=== PATIENT | female | born 1985 | race Caucasian/White ===

== ENCOUNTER 2020-08-30 11:05 | Emergency (ER) | payer OTHER ==
[2020-08-30] MEDS ORDERED: HYDROcod/ACET 5/325 Prepack 4 PO STA (11:20)
[2020-08-30] MEDS ORDERED: HYDROcod/ACETAM 5/325 MG TABLET PO STA (11:20)
[2020-08-30] MEDS ORDERED: predniSONE 20 MG TABLET PO STA (11:20)
--- NOTE | 2020-08-30 11:21 | ED Physician Documentation ---
PD HPI BACK PAIN - Stated complaint Stated Complaint: BACK PX - Chief complaint Chief Complaint: Back Pain - History obtained from History obtained from: Patient - Additional information Additional information: Starting that 2 weeks ago she had right-sided low back pain which has been progressive and now radiates into the hip with tingling in the toes on the right. She denies saddle anesthesia, incontinence, or fevers. She has had a similar episode on the left side in the past which was milder. There was no injury. No possibility of . No urinary complaints. Review of Systems Ten Systems: 10 systems reviewed and negative Constitutional: denies: Fever, Chills Eyes: denies: Loss of vision, Decreased vision Ears: denies: Loss of hearing, Ear pain Nose: reports: Reviewed and negative Throat: reports: Reviewed and negative Cardiac: reports: Reviewed and negative Respiratory: reports: Reviewed and negative PD PAST MEDICAL HISTORY - Present Medications Home Medications: Ambulatory Orders Medication Instructions Recorded Confirmed HYDROcod/ACETAM 5/325 [[place] 5/325] 1 - 2 tab PO Q6H PRN #15 tablet 08/30/20 predniSONE [Deltasone] 20 mg PO [id number] #21 tab 08/30/20 - Allergies Allergies/Adverse Reactions: Allergies Allergy/AdvReac Type Severity Reaction Status Date / Time Sulfa (Sulfonamide Allergy Hives Verified 08/30/20 11:11 Antibiotics) PD ED PE NORMAL - Vitals Vital signs reviewed: Yes - General General: Alert and oriented X 3 - Abdomen Abdomen: Normal bowel sounds, Soft, Non tender - Back Back: Other (She has muscular tenderness of the low right low back just above the pelvic brim posteriorly without midline or flank tenderness.) - Extremities Extremities: Other (The patient has equal and normal Achilles and patellar reflexes bilaterally. Normal sensation in all areas of the legs. Patient denies saddle anesthesia. Normal strength in flexion-extension at the ankles, knees, and flexion of the hips.) - Neuro Neuro: Alert and oriented X 3, Normal speech Results - Vitals Vitals: Vital Signs - 24 hr 08/30/20 08/30/20 11:06 12:40 Temperature 36.5 C 36.9 C Heart Rate 130 H 94 Respiratory 20 12 Rate Blood Pressure 127/69 109/77 O2 Saturation 100 100 Oxygen O2 Source Room air - Labs Labs: Laboratory Tests 08/30/20 11:30 Urine Color YELLOW Urine Clarity CLEAR Urine pH 6.5 Ur Specific [place] 1.015 Urine Protein NEGATIVE Urine Glucose (UA) NEGATIVE Urine Ketones NEGATIVE Urine Occult Blood TRACE-LYSE Urine Nitrite NEGATIVE Urine Bilirubin NEGATIVE Urine Urobilinogen 0.2 (NORMAL) Ur Leukocyte Esterase NEGATIVE Ur Microscopic Review NOT INDICATED Urine Culture Comments NOT INDICATED Urine HCG, Qual NEGATIVE - Rads (name of study) L spine XR Radiology: EMP read contemporaneously (Bronson owen, DMITRI) PD MEDICAL DECISION MAKING - ED course ED course: This patient has seemingly uncomplicated musculoskeletal back pain. The patient has no "red flags." Specifically denies IV drug use, fevers, incontinence, saddle anesthesia. Spinal epidural abscess was considered, given that the patient has no fever, is not diabetic, has no spinal tenderness, does not use IV drugs, and has no bilateral neurologic symptoms, the diagnosis of spinal epidural abscess is considered exceedingly unlikely. Departure - Departure Disposition: Home, Self Care Clinical Impression: Sciatica Qualifiers: Laterality: right Qualified Code(s): M54.31 - Sciatica, right side Condition: Good Record reviewed to determine appropriate education?: Yes Instructions: ED Sciatica Prescriptions: predniSONE [Deltasone] 20 mg PO [id number] #21 tab HYDROcod/ACETAM 5/325 [[place] 5/325] 1 - 2 tab PO Q6H PRN #15 tablet PRN Reason: Pain Comments: Return if worsening or if new symptoms develop. Follow-up your primary care physician, next available appointment, call Wednesday for that. Do not drink or drive while taking prescription pain medication. Discharge Date/Time: 08/30/20 12:44
[2020-08-30 11:42] LABS: BILIRUBIN,URINE NEGATIVE (NEGATIVE); GLUCOSE, URINE (UA) NEGATIVE (NEGATIVE); KETONES,URINE (UA) NEGATIVE (NEGATIVE); LEUKOCYTE ESTERASE, URINE NEGATIVE (NEGATIVE); NITRITE,URINE NEGATIVE (NEGATIVE); OCCULT BLOOD,URINE TRACE-LYSE (NEGATIVE); PH,URINE 6.5 PH (5.0-7.5); PROTEIN,URINE NEGATIVE (NEGATIVE); UROBILINOGEN,URINE 0.2 (NORMAL) E.U./dL (NORMAL)
[2020-08-30 11:44] LABS: CLARITY,URINE CLEAR (CLEAR); HCG UR QUAL NEGATIVE
--- NOTE | 2020-08-30 12:36 | XRAY Report ---
PROCEDURE: Lumbar Spine 2 View INDICATIONS: back pain TECHNIQUE: 2 views of the lumbar spine were acquired. COMPARISON: None. FINDINGS: Bones: 5 ecc-aht-dizpdig vertebrae are present. There is minimal to mild levoconvex thoracolumbar s clerotic curvature. Minimal retrolisthesis is seen at the L2-L3, L4-L5, and L5-S1 levels. No vertebra l body compression fractures. No suspicious bony lesions. Mild disc space narrowing is seen at the L5-S1 level. The spinal alignment and spinal curvature are otherwise within normal limits. Mild lower lumbar spine facet arthropathy is seen. Soft tissues: Overlying bowel gas pattern is normal. No suspicious soft tissue calcifications. IMPRESSION: Lower lumbar spine degenerative changes are seen, which are worst at the L5-S1 level. Reviewed by: Kedar Courtney MD on 08/30/2020 11:35 AM [facility] Approved by: Kedar Courtney MD on 08/30/2020 11:35 AM [facility] Station ID: [id number]
[2020-08-30 12:41] VITALS: BP 109/77
== END 2020-08-30 12:44 | disposition home or self-care (01) ==
LOC: ED 11:05
DX: M54.41 Lumbago with sciatica, right side (principal); M47.817 Spondylosis without myelopathy or radiculopathy, lumbosacral region
CPT/HCPCS: 72100; 81003; 81025; 99283; 99284; A9270; J7512; 81001; 87086

== ENCOUNTER 2020-10-31 16:10 | Outpatient (CLI) | payer OTHER ==
--- NOTE | 2020-11-01 08:25 | MRI Report ---
PROCEDURE: Lumbar Spine W/O INDICATIONS: LUMBAR RADICULOPATHY TECHNIQUE: Noncontrast sagittal T1 spin echo and T2 fast echo, sagittal STIR, axial T1 and T2 fast spin echo thr ough the lumbar spine. In cases with scoliosis, additional coronal T2 fast spin echo may be performe d. COMPARISON: None. FINDINGS: Image quality: Excellent. Alignment and Curvature: There is normal bony alignment. Bone Marrow: Marrow is of normal overall signal. No acute vertebral body compression fractures. Spinal Cord: Conus medullaris terminates at the L1 level. Visualized cord demonstrates normal signa l and size. Paraspinous Soft Tissues: No paravertebral masses. T12-L1: No significant disc bulge. The foramina and central canal are patent. L1-L2: No significant disc bulge. The foramina and central canal are patent. L2-L3: No significant disc bulge. The foramina and central canal are patent. L3-L4: Diffuse disc bulge causing mild bilateral foraminal stenosis. The central canal is patent. L4-L5: The disc is desiccated. There is a diffuse disc bulge with a left foraminal protrusion causi ng moderate to severe left foraminal stenosis bilaterally. There is a right paracentral disc extrusio n which extends caudally. The central canal is patent. L5-S1: There is a diffuse disc bulge and facet hypertrophy which cause mild bilateral foraminal toribio nosis. The central canal is patent. IMPRESSION: 1. L4-5 diffuse disc bulge with a right paracentral disc extrusion extending caudally and a left fora ilene protrusion causing moderate to severe foraminal stenosis bilaterally. 2. L5-S1 diffuse disc bulge with facet hypertrophy causing mild bilateral foraminal stenosis. 3. No central canal stenosis. Reviewed by: Bartolome Montemayor on 11/01/2020 8:24 AM PST Approved by: Bartolome Montemayor on 11/01/2020 8:24 AM PST Station ID: [id number]
== END 2020-10-31 16:11 | disposition home or self-care (01) ==
LOC: DI 16:10
PROVIDERS: ATTEND Student in an Organized Health Care Education/Training Program
DX: M51.17 Intervertebral disc disorders with radiculopathy, lumbosacral region (principal)

== ENCOUNTER 2020-11-25 08:41 | Outpatient (CLI) | payer OTHER ==
--- NOTE | 2020-11-26 09:27 | Mammography Report ---
BILATERAL DIGITAL DIAGNOSTIC MAMMOGRAM 3D/2D: 11/25/2020 CLINICAL: Intermitten pain in bilateral breasts. No prior exams were available for comparison. The tissue of both breasts is extremely dense, which l owers the sensitivity of mammography. No significant masses, calcifications, or other findings are seen in either breast. IMPRESSION: NEGATIVE There is no mammographic evidence of malignancy. A 5 year screening mammogram is recommended. This exam was interpreted at Station ID: [id number]. NOTE: For mammograms, a report in lay terms will be sent to the patient. Approximately 15% of breast malignancies will not be visualized mammographically. In the management of a palpable breast mass, a negative mammogram must not discourage biopsy of a clinically suspicious lesion. Electronically Signed By: Bartolome Montemayor acr/penrad:11/25/2020 12:36:07 ACR BI-RADS Category 1: Negative 3341F PARENCHYMAL PATTERN: (VD) - The breast(s) demonstrate(s) extremely dense parenchyma, limiting the sen sitivity of mammography. BI-RADS CATEGORY: (1) - 1 Mammogram [id number] 5 year screening LATERALITY: (B)
== END 2020-11-25 08:42 | disposition home or self-care (01) ==
LOC: DI 08:41
PROVIDERS: ATTEND Student in an Organized Health Care Education/Training Program
DX: N64.4 Mastodynia (principal)